=== PATIENT | male | born 1980 | race Caucasian/White ===

== ENCOUNTER 2020-01-30 20:25 | Emergency (ER) | payer OTHER ==
[~2020-01-30] VITALS: Ht 165.1 cm; Wt 65.9 kg
--- NOTE | 2020-01-30 20:47 | NUR ---
Presented pt's case to EDP. Sepsis work up to be initiated. Pt. to be placed in isolation precautions once room becomes available. Pt. remains in the ambulance bay at this time, with mask on.
--- NOTE | 2020-01-30 21:25 | NUR ---
PATIENT REFUSING IV, LAB DRAW AND URINE SAMPLE. WANTS COVID TEST AND SOMETHING FOR HIS COUGH.
[2020-01-30] MEDS ORDERED: BENZ-16 PO (23:13)
[2020-01-30 23:33] VITALS: BP 108/70
== END 2020-01-30 23:35 | disposition home or self-care (01) ==
LOC: ER 20:26
DX: J06.9 Acute upper respiratory infection, unspecified (principal); R05 Cough; R50.9 Fever, unspecified; Z20.828 Contact with and (suspected) exposure to other viral communicable diseases; F17.200 Nicotine dependence, unspecified, uncomplicated; Z79.899 Other long term (current) drug therapy
CPT/HCPCS: 36415; 71045; 87635; 99284